=== PATIENT | male | born 2000 | race Caucasian/White ===

== ENCOUNTER 2024-11-27 10:19 | Inpatient (IN) ==
[2024-11-27 11:30] LABS: Acetaminophen < 3 ug/ml (10-30); Salicylate < 3.0 mg/dl (3.0-30)
[2024-11-27 11:39] LABS: Albumin Globulin Ratio 1.4 (0.9-2); Bilirubin,Total 0.6 mg/dl (0.2-1.0); Globulin 3.6 gm/dl (2.5-4.0); Total Protein 8.6 gm/dl (6.0-8.3)
[2024-11-27 11:44] LABS: Thyroid Stimulating Hormone 3.596 uIu/ml (0.300-4.500)
[2024-11-27 11:53] LABS: Appearance Urine Clear (Clear); Bacteria Urine Automated None Seen (None Seen); Bilirubin Urine Negative (Negative); Blood Urine Negative (Negative); Cast Urine Automated 0-2 /lpf (0-2); Color Urine Yellow; Epithelial Cell Urine Auto 0-2 /hpf (0-2); Glucose Urine UA Negative (Negative); Ketones Urine Trace (Negative); Leukocyte Esterase Urine Negative (Negative); Nitrite Urine Negative (Negative); Protein Urine Trace (Negative); RBC Urine Automated 0-2 /hpf (0-2); Specific Gravity Urine 1.031 (1.000-1.030); Urobilinogen Urine Negative (Negative); WBC Urine Automated 0-5 /hpf (0-5); pH Urine 5.5 (4.5-7.5)
[2024-11-27 12:39] LABS: Amphetamines+Metham, Urine Neg (Neg); Barbiturates, Urine Neg (Neg); Benzodiazepine, Urine Neg (Neg); Cocaine, Urine Neg (Neg); Fentanyl, Urine Neg (Neg); MDMA (Ecstacy), Urine Neg (Neg); Marijuana, Urine Neg (Neg); Methadone, Urine Neg (Neg); Opiate, Urine Neg (Neg); Phencyclidine, Urine Neg (Neg)
[2024-11-27 12:46] LABS: Basophils # (auto) 0.05 K/uL (0.00-0.20); Basophils % (auto) 0.5 %; Eosinophils # (auto) 0.19 K/uL (0.00-0.50); Eosinophils % (auto) 1.9 %; Hematocrit (blood only) 48.5 % (42.0-52.0); Immature Granulocytes # (auto) 0.05 K/uL (0.01-0.20); Immature Granulocytes % (auto) 0.5 %; Lymphocytes # (auto) 2.41 K/uL (1.20-3.40); Lymphocytes % (auto) 23.5 %; Mean Corpuscular Hemoglobin 30.9 pg (25.0-34.0); Mean Corpuscular Hgb Conc 35.1 g/dL (32.0-36.0); Monocytes # (auto) 0.85 K/uL (0.11-0.59); Monocytes % (auto) 8.3 %; Neutrophils # (auto) 6.69 K/uL (1.40-6.50); Neutrophils % (auto) 65.3 %; Platelet Count 288 K/uL (130-400); RDW Coefficient of Variation 13.2 % (11.5-14.5); RDW Standard Deviation 42.5 fL (36.4-46.3); Red Blood Count 5.51 M/uL (4.70-6.10); White Blood Count 10.24 K/ul (4.8-10.8)
[2024-11-27 13:10] LABS: BUN Creatinine Ratio 17.4 (10-20); Calcium 10.2 mg/dl (8.6-10.3); Creatinine Clr Calc Pharmacy 175.7 ml/min; Potassium 4.3 mmol/L (3.5-5.1)
--- NOTE | 2024-11-27 13:50 | Emergency Department Note ---
Impression & Plan Depression, Suicidal ideation ED Provider Note HISTORY OF PRESENT ILLNESS: Patient is a 24-year-old male presenting with depression and suicidal ideation. Patient reports over the last few months, most notably in the last 4 weeks, he has been having significant depressive symptoms. He reports that he has changes in his sleep schedule where he will only sleep for 4 hours a night or up to 14. He states that he has lack of pedro in doing the things that he needs to do anymore. He denies any particular trigger for these symptoms. He states that in the last few weeks, he has had passive thoughts of wanting to end his life. However, he states that "I would never do that because that would be selfish of me." He has no mental health diagnoses. He has never been admitted inpatient for psychiatry before. He does not take any medications. He denies any plan to end his life, but states that he has had passive thoughts of wanting it to be over. He states that he recently went on a vacation with his family and he did not feel like doing any of the fun activities that him and his family had planned. He reports his appetite is good. ROS: as above PHYSICAL EXAM: Constitutional: Patient appears in no acute distress. HENT: Head: Normocephalic and atraumatic. Eyes: EOMI, PERRL Mouth/Throat: Mucous membranes moist. Neck: Trachea midline. Neck supple. Musculoskeletal: No edema, tenderness or deformity noted. Skin: Warm and dry. No rash, erythema, pallor or cyanosis Psychiatric: Appropriate mood and affect for situation. Neurological: Alert and keenly responsive. CN II-XII grossly intact, moving all extremities equally and fully. MDM: - Vitals signs showed hypertension and tachycardia - History obtained via patient. History as above. - Chronic conditions affecting care: None - Differential diagnoses include, but are not limited to: Depression; UTI; alcohol intoxication; drug intoxication - External medical records reviewed. - Laboratory workup interpreted by myself showed normal WBC; stable electrolytes; normal TSH; negative ethanol/salicylate/acetaminophen levels - COVID negative - UA negative for infection - UDS negative - Patient was seen in conjunction with behavioral health case repairer. Patient medically cleared at this time. I do feel that the patient would benefit from inpatient psychiatric admission. A referral was sent to [facility] inpatient psychiatric unit, [address] [place] [address]. Liaison from the unit came down to evaluate the patient and he was excepted as a 201 in 3 [facility] inpatient unit. ASSESSMENT AND PLAN: Diagnosis: Depression; suicidal ideation Plan: Admit to [address] [place] [address] Past Med/Surg History Problem List (Updated 11/27/24 @ 15:52 by Andreina Laureano MD) Suicidal ideation (Acute) Depression (Acute) Social History Smoking Status: Never smoker Preferred Language: Samoan Feels Safe at Home: Yes Gender Identity: Male Results & Data (ED) Vital Signs Vital Signs - 24 hr 11/27/24 10:26 11/27/24 12:20 11/27/24 14:02 Temperature 36.8 C Temperature Source Temporal Artery Scan Pulse Rate 103 H Pulse Rate [Finger] 98 H 86 Respiratory Rate 20 18 20 Respiratory Effort / Characteristics Non-Labored Spontaneous Non-Labored Spontaneous Non-Labored Spontaneous Respiratory Depth Normal Normal Normal Respiratory Pattern Regular Regular Blood Pressure 160/99 H Blood Pressure [Left Arm] 152/88 H 143/93 H Blood Pressure Mean 119 Blood Pressure Mean [Left Arm] 109 109 Pulse Oximetry 97 98 97 Oxygen Delivery Method Room Air Room Air Room Air Sepsis Recent Fever Within 48 Hours No Sepsis New/Unexplained Change in Mental Status No Sepsis Action Taken by Nursing No Action Required Laboratory Data 11/27/24 12:30 11/27/24 10:43 Lab Results 11/27/24 11/27/24 11/27/24 Range/Units 10:36 10:38 10:43 WBC Cancelled RBC Cancelled Hgb Cancelled Hct Cancelled MCV Cancelled MCH Cancelled MCHC Cancelled RDW Std Deviation Cancelled RDW Coeff of Roge Cancelled Plt Count Cancelled MPV Cancelled Immature Gran % (Auto) Cancelled Neut % (Auto) Cancelled Lymph % (Auto) Cancelled Traill % (Auto) Cancelled Eos % (Auto) Cancelled Baso % (Auto) Cancelled Neut # (Auto) Cancelled Lymph # (Auto) Cancelled Traill # (Auto) Cancelled Eos # (Auto) Cancelled Baso # (Auto) Cancelled Immature Gran # (Auto) Cancelled Absolute Nucleated RBC Cancelled Nucleated RBC % (auto) Cancelled Neutrophils % (Manual) Cancelled Band Neutrophils % Cancelled Lymphocytes % (Manual) Cancelled Prolymphocyte % Cancelled Reactive Lymphs % (Man) Cancelled Monocytes % (Manual) Cancelled Eosinophils % (Manual) Cancelled Basophils % (Manual) Cancelled Metamyelocytes % (Man) Cancelled Myelocytes % (Man) Cancelled Promyelocytes % (Man) Cancelled Blast Cells % (Manual) Cancelled Plasma Cell % (Manual) Cancelled Other Cells % Cancelled Nucleated RBC % Cancelled Neutrophils # (Manual) Cancelled Band Neutrophils # Cancelled Total Absolute Neuts Cancelled Lymphocytes # (Manual) Cancelled Prolymphocyte # Cancelled Reactive Lymphs # Cancelled Total Abs Lymphocytes Cancelled Monocytes # (Manual) Cancelled Eosinophils # (Manual) Cancelled Basophils # (Manual) Cancelled Metamyelocytes # (Man) Cancelled Myelocytes # (Manual) Cancelled Promyelocytes # (Man) Cancelled Blast Cells # (Man) Cancelled Plasma Cell # (Manual) Cancelled Other Cells # Cancelled Nucleated RBCs # (Man) Cancelled Hypersegmented Neuts Cancelled Hyposegmented Neuts Cancelled Hypogranular Neuts Cancelled Large Granular Lymphs Cancelled # Lrg Granular Lymphs Cancelled Hairy Cells Cancelled Smudge Cells Cancelled Toxic Granulation Cancelled Toxic Vacuolation Cancelled Dohle Bodies Cancelled Rin Rods Cancelled Platelet Estimate Cancelled Hypogranular Platelets Cancelled Giant Platelets Cancelled Platelet Satelliting Cancelled RBC Morphology Cancelled Polychromasia Cancelled Hypochromasia Cancelled Poikilocytosis Cancelled Basophilic Stippling Cancelled Anisocytosis Cancelled Microcytosis Cancelled Macrocytosis Cancelled Spherocytes Cancelled Pappenheimer Bodies Cancelled Sickle Cells Cancelled Target Cells Cancelled Tear Drop Cells Cancelled Ovalocytes Cancelled Stomatocytes Cancelled Martinez-Silt Bodies Cancelled Echinocytes Cancelled Acanthocytes (Spur) Cancelled Rouleaux Cancelled RBC Agglutinates Cancelled Schistocytes Cancelled Sezary Cell Cancelled Sodium 139 (136-145) mmol/L Potassium 4.3 (3.5-5.1) mmol/L Chloride 107 (98-107) mmol/L Carbon Dioxide 22 (21-32) mmol/L Anion Gap 10 (3-11) BUN 15 (6-23) mg/dl Creatinine 0.86 (0.6-1.4) mg/dl Est Cr Clr Drug Dosing 175.7 ml/min eGFR 125.55 BUN/Creatinine Ratio 17.4 (10-20) Glucose 114 H (70-99(Fasting)) mg/dl Calcium 10.2 (8.6-10.3) mg/dl Total Bilirubin 0.6 (0.2-1.0) mg/dl AST 33 (13-39) U/L ALT 73 H (7-52) U/L Alkaline Phosphatase 61 (34-104) U/L Total Protein 8.6 H (6.0-8.3) gm/dl Albumin 5.0 (3.4-5.0) gm/dl Globulin 3.6 (2.5-4.0) gm/dl Albumin/Globulin Ratio 1.4 (0.9-2) TSH 3.596 (0.300-4.500) uIu/ml Urine Color Yellow Urine Appearance Clear (Clear) Urine pH 5.5 (4.5-7.5) Ur Specific Milnor 1.031 H (1.000-1.030) Urine Protein Trace H (Negative) Urine Glucose (UA) Negative (Negative) Urine Ketones Trace H (Negative) Urine Blood Negative (Negative) Urine Nitrite Negative (Negative) Urine Bilirubin Negative (Negative) Urine Urobilinogen Negative (Negative) Ur Leukocyte Esterase Negative (Negative) Urine WBC (Auto) 0-5 (0-5) /hpf Urine RBC (Auto) 0-2 (0-2) /hpf U Hyaline Cast (Auto) 0-2 (0-2) /lpf U Epithel Cells (Auto) 0-2 (0-2) /hpf Urine Bacteria (Auto) None Seen (None Seen) Urine Comment Salicylates < 3.0 L (3.0-30) mg/dl Urine Opiates Screen Neg (Neg) Ur Methadone, Qual Neg (Neg) Urine Fentanyl Screen Neg (Neg) Acetaminophen < 3 L (10-30) ug/ml Urine Barbiturates Neg (Neg) Ur Phencyclidine (PCP) Neg (Neg) U Amphetamin/Meth Scrn Neg (Neg) MDMA (Ecstasy) Screen Neg (Neg) U Benzodiazepines Scrn Neg (Neg) Ur Cocaine Metabolite Neg (Neg) U Marijuana (THC) Screen Neg (Neg) Ethyl Alcohol mg/dL < 10.0 (<10.0) mg/dl SARS-CoV-2, RNA, NAAT NEGATIVE (NEGATIVE) Blood Parasites ID Cancelled 11/27/24 Range/Units 12:30 WBC 10.24 RBC 5.51 Hgb 17.0 Hct 48.5 MCV 88.0 MCH 30.9 MCHC 35.1 RDW Std Deviation 42.5 RDW Coeff of Roge 13.2 Plt Count 288 MPV 12.0 Immature Gran % (Auto) 0.5 Neut % (Auto) 65.3 Lymph % (Auto) 23.5 Traill % (Auto) 8.3 Eos % (Auto) 1.9 Baso % (Auto) 0.5 Neut # (Auto) 6.69 H Lymph # (Auto) 2.41 Traill # (Auto) 0.85 H Eos # (Auto) 0.19 Baso # (Auto) 0.05 Immature Gran # (Auto) 0.05 Absolute Nucleated RBC Nucleated RBC % (auto) Neutrophils % (Manual) Band Neutrophils % Lymphocytes % (Manual) Prolymphocyte % Reactive Lymphs % (Man) Monocytes % (Manual) Eosinophils % (Manual) Basophils % (Manual) Metamyelocytes % (Man) Myelocytes % (Man) Promyelocytes % (Man) Blast Cells % (Manual) Plasma Cell % (Manual) Other Cells % Nucleated RBC % Neutrophils # (Manual) Band Neutrophils # Total Absolute Neuts Lymphocytes # (Manual) Prolymphocyte # Reactive Lymphs # Total Abs Lymphocytes Monocytes # (Manual) Eosinophils # (Manual) Basophils # (Manual) Metamyelocytes # (Man) Myelocytes # (Manual) Promyelocytes # (Man) Blast Cells # (Man) Plasma Cell # (Manual) Other Cells # Nucleated RBCs # (Man) Hypersegmented Neuts Hyposegmented Neuts Hypogranular Neuts Large Granular Lymphs # Lrg Granular Lymphs Hairy Cells Smudge Cells Toxic Granulation Toxic Vacuolation Dohle Bodies Rin Rods Platelet Estimate Hypogranular Platelets Giant Platelets Platelet Satelliting RBC Morphology Polychromasia Hypochromasia Poikilocytosis Basophilic Stippling Anisocytosis Microcytosis Macrocytosis Spherocytes Pappenheimer Bodies Sickle Cells Target Cells Tear Drop Cells Ovalocytes Stomatocytes Martinez-Silt Bodies Echinocytes Acanthocytes (Spur) Rouleaux RBC Agglutinates Schistocytes Sezary Cell Sodium (136-145) mmol/L Potassium (3.5-5.1) mmol/L Chloride (98-107) mmol/L Carbon Dioxide (21-32) mmol/L Anion Gap (3-11) BUN (6-23) mg/dl Creatinine (0.6-1.4) mg/dl Est Cr Clr Drug Dosing ml/min eGFR BUN/Creatinine Ratio (10-20) Glucose (70-99(Fasting)) mg/dl Calcium (8.6-10.3) mg/dl Total Bilirubin (0.2-1.0) mg/dl AST (13-39) U/L ALT (7-52) U/L Alkaline Phosphatase (34-104) U/L Total Protein (6.0-8.3) gm/dl Albumin (3.4-5.0) gm/dl Globulin (2.5-4.0) gm/dl Albumin/Globulin Ratio (0.9-2) TSH (0.300-4.500) uIu/ml Urine Color Urine Appearance (Clear) Urine pH (4.5-7.5) Ur Specific Milnor (1.000-1.030) Urine Protein (Negative) Urine Glucose (UA) (Negative) Urine Ketones (Negative) Urine Blood (Negative) Urine Nitrite (Negative) Urine Bilirubin (Negative) Urine Urobilinogen (Negative) Ur Leukocyte Esterase (Negative) Urine WBC (Auto) (0-5) /hpf Urine RBC (Auto) (0-2) /hpf U Hyaline Cast (Auto) (0-2) /lpf U Epithel Cells (Auto) (0-2) /hpf Urine Bacteria (Auto) (None Seen) Urine Comment Salicylates (3.0-30) mg/dl Urine Opiates Screen (Neg) Ur Methadone, Qual (Neg) Urine Fentanyl Screen (Neg) Acetaminophen (10-30) ug/ml Urine Barbiturates (Neg) Ur Phencyclidine (PCP) (Neg) U Amphetamin/Meth Scrn (Neg) MDMA (Ecstasy) Screen (Neg) U Benzodiazepines Scrn (Neg) Ur Cocaine Metabolite (Neg) U Marijuana (THC) Screen (Neg) Ethyl Alcohol mg/dL (<10.0) mg/dl SARS-CoV-2, RNA, NAAT (NEGATIVE) Blood Parasites ID Discharge Plan Visit Data Chief Complaint: Mental Health Evaluation Stated Complaint: MENTAL HEALTH ED Provider: Andreina Laureano Discharge Problem: Depression, Suicidal ideation Patient Disposition: Admitted As Inpatient Condition: Fair Discharge Instructions Interventions: ED Discharge Assessment Last Done: 11/27/24 15:48 Forms Stand Alone Forms: [facility], Suicide Prevention Resources Referrals Referrals: PCP,NO [Primary Care Provider] -
[2024-11-27] MEDS ORDERED: MAGNESIUM HYDROXIDE SUSP 30 ML UDC PO PRN (15:25)
[2024-11-27] MEDS ORDERED: SODIUM CHLORIDE 0.65% NA SOLN 45 ML (OCEAN) PRN (15:25)
[2024-11-27] MEDS ORDERED: ALUMINUM/MAGNESIUM SUSP 30 ML UDC PO PRN (15:25)
[2024-11-27] MEDS ORDERED: hydrOXYzine HCl 25 MG TAB PO PRN ×2 (15:25)
[2024-11-27] MEDS ORDERED: BISMUTH SUBSALICYLATE 262 MG CHEW PO PRN (15:25)
[2024-11-27] MEDS ORDERED: ACETAMINOPHEN 325 MG TAB PO PRN (15:25)
[2024-11-27] MEDS ORDERED: NON-FORMULARY PATIENT'S OWN MED PRN (16:18)
--- NOTE | 2024-11-28 13:27 | History & Physical ---
Date of Service November 28, 2024 Impression / Recommendations Impression VANESSA SNOWDEN is a 24-year-old M who currently lives in with roommate, has no PPH, and was admitted on 11/27/24 15:25 on a 201 voluntary commitment for suicidal ideation. Patient presents with recurrent major depressive episodes and anxious ruminations with strong family history causing academic and social dysfunction and poor self care. No past psychiatric history. Recent passive suicidal ideation with no active plans, denies past suicide attempts, intact reality testing wanting to live for family members, and future oriented with multiple goals. Labs reviewed and CBC, CMP, TSH, UA, UDS, BAL unremarkable. Plan to initiate serotonin antidepressant, med s/e and adverse effects discussed with pt and agreeable. Recommended pt to engage in cognitive behavioral therapy. Overall, I spent a total of 80 minutes with this case including review of chart records, nursing report, review of lab work, direct evaluation of the patient at bedside, counseling the patient, multidisciplinary team meeting, orders, and documentation in the electronic health record. 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 The patient will participate in group, recreational, and milieu therapies and will be offered additional individual and family sessions as clinically appropriate. -Start Sertraline 50mg daily -Start Hydroxyzine 50mg HS -Labs: A1c, fasting lipid (given BMI), Vit D, Vit B12 -Questionnaires: KALEB-7, PHQ9 Inventory Assets Strengths: social supports, intelligent Needs: outpatient connection, coping skills Suicide Risk Level Suicide Risk Level: Moderate (q15 min suicide checks) Risk Factors Assessment Male: Yes : Yes Do You Have Access To A Gun?: No Health Problems: No Mental Health Diagnoses: Yes Substance Use Disorders: No Previous Attempt: No Family History of Suicide: Yes Previous Psychiatric Hospitalization: No Hopelessness: No Protective Factors Assessment Christianity Beliefs: No : No Responsible for Young Children: No Employed: Yes ([employer]) Stable Relationships: Yes Supportive Family: Yes Good Rapport with Provider: Yes Absence of Any Risk Factors Above: No Psychiatric History Identifying Data VANESSA SNOWDEN is a 24-year-old M who currently lives in with roommate, has no PPH, and was admitted on 11/27/24 15:25 on a 201 voluntary commitment for suicidal ideation. Chief Complaint "Last 6 weeks not functioning well" History of Present Illness the patient reports not functioning the same over the past 6 weeks. He missed an academic deadline and he easily becomes stressed out. This happened last year as well. He worries about school and it spirals into other concerns. Has a fear of failure. Complains of less self-care, loss of appetite, decreased energy, decreased concentration, trouble staying asleep, poor sleep hygiene. Started 6 weeks ago. Reports multiple past episodes one last summer and the spring. Triggers for these episodes include missing academic deadlines. He complains of passive SI and reports he does this as a easy way out to escape from his problems. He says that he would never do it though because he wants to live for his family. No active plans or methods. Patient complains of depressed mood, inability to enjoy activities, sleep pattern disturbances, loss of interest, forgetfulness, increased fatigue, avoidance behaviors. Last felt suicidal 1 to 3 days ago. Denies access to firearms. Denies past suicide attempts. Denies current hopelessness. No past drug or alcohol treatment. Denies past alcohol or drug abuse. No tobacco. Drinks with 1-2 coffees a day. No past psychiatric history. Family psychiatric history significant for completed suicide in maternal grandfather, multiple family members on maternal side on antidepressants, suspected anxiety in father. Unknown medications and family members Childhood history: Grew up in [facility]. Parents at 12 years of age. Often feels judgment from father's side of the family. Denies neglect, physical/sexual abuse. Social history: Lives in an apartment for 1 year with a roommate. No housing concerns and can return home after discharge. Has access to transportation. has 1 younger sister. Father lives in [place] and mother in [place]. Currently single and sexually active with a heterosexual orientation. No past marriages or children. Has a bachelor's in aerospace engineering and currently pursuing a PhD in aerospace engineering At [employer]. No legal problems or arrests. Does not belong to a spiritual group. Past Psychiatric History Current Psychiatric Diagnosis: No hx formal MH diagnosis Do You Have Access To A Gun?: No History of Previous Suicide Attempt: No Allergies Allergy/AdvReac Type Severity Reaction Status Date / Time peanut Allergy Severe Anaphylaxis Unverified 11/27/24 16:17 shellfish derived Allergy Mild Unverified 11/27/24 16:17 Family History Family History of: Depression, Anxiety and Suicide Completion Family Mental Health History Comment: Dad depression/anxiety, maternal gran dfather completed suicide Alcohol History Hx of Alcohol Use Over the Past 12 Months: Yes (drinks very rarely) AUDIT Total Score: 1 Smoking Use Have You Smoked or Used Tobacco Products in the Last 30 Days: No Smoking Status: Never smoker Substance History Hx of Prescription Med Misuse Over the Past 12 Months: No Hx of Over the Counter Med Misuse Over the Past 12 Months: No Hx of Inhalent Misuse Over the Past 12 Months: No Hx of Organic Substance Use Over the Past 12 Months: No Hx of Illegal Substances/Street Drug Use Over Past 12 Months: No Problems as a Result of Past Substance Use: None Identified Personal History Living Arrangements: Apartment Highest Grade Completed: College Beliefs That Will Affect Care: None Patient History Social History Smoking Status: Never smoker Preferred Language: Tanzanian Communication Ability: Effective Cartridge Filler Required: No Beliefs That Will Affect Care: None Feels Safe at Home: Yes Gender Identity: Male Assistive Devices: Glasses Physical Exam Mental Examination: Appearance: Well Groomed Eye Contact: Direct Eye Contact Motor Behavior: Wringing Hands Speech: Normal Mood: Calm and Anxious Affect: Anxious and Constricted Thought Process: Intact and Linear Thought Content: Intact Hallucinations: None Insight: Fair Judgement: Fair Vital Signs (Past 24 Hours): Last Vital Signs Temp 36.8 C 11/28/24 05:52 Pulse 91 H 11/28/24 05:53 Resp 17 11/28/24 05:52 BP 125/84 11/28/24 05:53 Pulse Ox 99 11/28/24 05:52 O2 Del Method Room Air 11/28/24 05:52 Exam Statement: A physical exam was performed in the ED for the purposes of medical clearance. I accept that physical as correct and adequate for the purposes of the inpatient physical exam. Results & Data ([facility]) Current Inpatient Medications Current Inpatient Medications: Current Inpatient Medications Acetaminophen (Acetaminophen 325 Mg Tab) 650 mg PO Q4H PRN PRN Reason: Headache or Minor Fever Stop: 12/27/24 15:24 Al Hydrox/Mg Hydrox/Simethicone (Aluminum/Magnesium Susp 30 Ml Udc) 30 ml PO Q4H PRN PRN Reason: GI Upset Stop: 12/27/24 15:24 Bismuth Subsalicylate (Bismuth Subsalicylate 262 Mg Chew) 2 tab PO Q30M PRN PRN Reason: Loose Stool/Diarrhea Stop: 12/27/24 15:24 Hydroxyzine HCl (Hydroxyzine Hcl 25 Mg Tab) 50 mg PO HSZ PRN PRN Reason: Insomnia Stop: 12/27/24 15:24 Hydroxyzine HCl (Hydroxyzine Hcl 25 Mg Tab) 25 mg PO Q4H PRN PRN Reason: Anxiety Stop: 12/27/24 15:24 Hydroxyzine HCl (Hydroxyzine Hcl 25 Mg Tab) 50 mg PO HS LATASHA Stop: 12/28/24 21:59 Magnesium Hydroxide (Magnesium Hydroxide Susp 30 Ml Udc) 30 ml PO DAILY PRN PRN Reason: Constipation Stop: 12/27/24 15:24 Sertraline HCl (Sertraline Hcl 50 Mg Tablet) 50 mg PO QAM LATASHA Stop: 12/28/24 12:29 Sodium Chloride (Sodium Chloride 0.65% Na Soln 45 Ml ([place])) 1 - 2 sprays NA PRN PRN PRN Reason: Nasal Dryness/Congestion Stop: 12/27/24 15:24
[2024-11-28] MEDS ORDERED: EPINEPHrine INJ 1 MG/ML AMP IM PRN (13:43)
[2024-11-28] MEDS: SERTRALINE HCL 50 MG TABLET PO SCH (14:18)
[2024-11-28] MEDS: hydrOXYzine HCl 25 MG TAB PO SCH (21:19)
[2024-11-29 08:13] LABS: Estimated Average Glucose 105 mg/dl; Hemoglobin A1C 5.3 % (4.5-5.6)
--- NOTE | 2024-11-29 09:24 | Psychiatric Progress Note ---
Date of Service November 29, 2024 Impression / Recommendations Impression VANESSA SNOWDEN is a 24-year-old M who currently lives in with roommate, has no PPH, and was admitted on 11/27/24 15:25 on a 201 voluntary commitment for suicidal ideation. Diagnostically consistent with major depressive disorder and generalized anxiety disorder in context of recent academic stress and worsening symptoms. A: Eating well, sleep improving with Vistaril addition. Tolerating sertraline so far, possible side effect of headache but he feels this is manageable. Labwork reviewed and notable for elevated TGs and low Vit D. Discussed individual therapy vs IOP, he'll consider these options. Overall, I spent a total of 40 minutes on this case including meeting with the patient, reviewing the chart, nursing report, multidisciplinary team meeting, orders, and documentation. 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 The p atient will participate in group, recreational, and milieu therapies and will be offered additional individual and family sessions as clinically appropriate. -Start Sertraline 50mg daily -Start Hydroxyzine 50mg HS -Labs: A1c, fasting lipid (given BMI), Vit D, Vit B12 -Questionnaires: KALEB-7, PHQ9 Inventory Assets Strengths: social supports, intelligent Needs: outpatient connection, coping skills Suicide Risk Level Suicide Risk Level: Moderate (q15 min suicide checks) (depression with SI but feels safe in the hospital and feels able to ask for support if needed) Risk Factors Assessment Male: Yes : Yes Do You Have Access To A Gun?: No Health Problems: No Mental Health Diagnoses: Yes Substance Use Disorders: No Previous Attempt: No Family History of Suicide: Yes Previous Psychiatric Hospitalization: No Hopelessness: No Protective Factors Assessment Denominational Beliefs: No : No Responsible for Young Children: No Employed: Yes ([employer]) Stable Relationships: Yes Supportive Family: Yes Good Rapport with Provider: Yes Absence of Any Risk Factors Above: No Interval History Identifying Information VANESSA SNOWDEN is a 24-year-old M who currently lives in with roommate, has no PPH, and was admitted on 11/27/24 15:25 on a 201 voluntary commitment for suicidal ideation. Chief Complaint "Less bad". Review of Systems Sleep Information Total Hours of Sleep: 7.5 Meal Information Percent Meal Consumed - Breakfast: 100 Percent Meal Consumed - Lunch: 100 Percent Meal Consumed - Dinner: 95 Subjective Subjective Patient was seen & assessed and interval progress reviewed with nursing. Attending groups, eating his meals. Today reports some improvement in sleep last night. Having a headache today. Denies any other medication side effects. Disc ussed recent stressors related to missing a submission deadline for a conference and cycle of avoidance which further intensified his anxiety and lead to increased depression. Reviewed PHQ-9 score of 13 and KALEB-7 of 7. Physical Exam Psychiatric Orientation: alert and oriented x 3 Apperance: appropriately dressed and appropriately groomed Eye Contact: good eye contact Motor Behavior: no abnormal motor movements Speech: normal rate/rhythm/volume of speech Affect: + depressed affect and + anxious affect Mood: + depressed mood and + anxious mood Thought Process: goal directed thought process Thought Content: reality based without delusions Suicidal Thoughts: denies suicidal plan and denies suicidal intent; + reports suicidal thoughts (intermittent ) Homicidal Thoughts: denies homicidal thoughts Hallucinations: no auditory hallucinations and no visual hallucinations Cognition: recent memory grossly intact, remote memory grossly intact, attention grossly intact and language grossly intact Estimated Intelligence: consistent with education level Insight: + fair insight Judgment: + fair judgement Vital Signs (Past 24 Hours) Last Vital Signs Temp 36.4 C 11/29/24 06:25 Pulse 94 H 11/29/24 06:25 Resp 16 11/29/24 06:25 BP 113/80 11/29/24 06:25 Pulse Ox 97 11/29/24 06:25 O2 Del Method Room Air 11/29/24 06:25 Results & Data ([facility]) Laboratory Results Laboratory Results - last 24 hr 11/29/24 07:07 Estimat Average Glucose 105 Hemoglobin A1c 5.3 Triglycerides 209 H Cholesterol 161 LDL Cholesterol, Calc 79 VLDL Cholesterol, Calc 42 H HDL Cholesterol 40 Cholesterol/HDL Ratio 4.0 Vitamin B12 674 25-OH Vitamin D Total 14.8 L Current Inpatient Medications Current Inpatient Medications: Current Inpatient Medications Acetaminophen (Acetaminophen 325 Mg Tab) 650 mg PO Q4H PRN PRN Reason: Headache or Minor Fever Stop: 12/27/24 15:24 Al Hydrox/Mg Hydrox/Simethicone (Aluminum/Magnesium Susp 30 Ml Udc) 30 ml PO Q4H PRN PRN Reason: GI Upset Stop: 12/27/24 15:24 Bismuth Subsalicylate (Bismuth Subsalicylate 262 Mg Chew) 2 tab PO Q30M PRN PRN Reason: Loose Stool/Diarrhea Stop: 12/27/24 15:24 Epinephrine HCl (Epinephrine Inj 1 Mg/Ml Amp) 0.3 mg IM PRN PRN PRN Reason: Anaphylaxis Stop: 12/28/24 13:42 Hydroxyzine HCl (Hydroxyzine Hcl 25 Mg Tab) 50 mg PO HSZ PRN PRN Reason: Insomnia Stop: 12/27/24 15:24 Hydroxyzine HCl (Hydroxyzine Hcl 25 Mg Tab) 25 mg PO Q4H PRN PRN Reason: Anxiety Stop: 12/27/24 15:24 Hydroxyzine HCl (Hydroxyzine Hcl 25 Mg Tab) 50 mg PO HS LATASHA Stop: 12/28/24 21:59 Last Admin: 11/28/24 21:19 Dose: 50 mg Magnesium Hydroxide (Magnesium Hydroxide Susp 30 Ml Udc) 30 ml PO DAILY PRN PRN Reason: Constipation Stop: 12/27/24 15:24 Sertraline HCl (Sertraline Hcl 50 Mg Tablet) 50 mg PO QAM LATASHA Stop: 12/28/24 12:29 Last Admin: 11/29/24 08:15 Dose: 50 mg Sodium Chloride (Sodium Chloride 0.65% Na Soln 45 Ml ([employer])) 1 - 2 sprays NA PRN PRN PRN Reason: Nasal Dryness/Congestion Stop: 12/27/24 15:24 Mental Health & Subst Abuse Tx Therapist Name of Therapist: N/A [facility]n [facility]ation Name of Rn Observation: [facility] Phone Number for Rn Observation: [phone]
[2024-11-30] MEDS: CHOLECALCIFEROL 25 MCG (1000 UNITS) TAB PO SCH (08:16)
--- NOTE | 2024-11-30 09:55 | Psychiatric Progress Note ---
Date of Service November 30, 2024 Impression / Recommendations Impression VANESSA SNOWDEN is a 24-year-old M who currently lives in with roommate, has no PPH, and was admitted on 11/27/24 15:25 on a 201 voluntary commitment for suicidal ideation. Diagnostically consistent with major depressive disorder and generalized anxiety disorder in context of recent academic stress and worsening symptoms. A: Mood improving, still needs support meeting and to work on his safety plan. SW to help identify possible therapy vs CM referrals tomorrow and PCP for aftercare. Overall, I spent a total of 35 minutes on this case including meeting with the patient, reviewing the chart, nursing report, orders, and documentation. 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 The patient will participate in group, recreational, and milieu therapies and will be offered additional individual and family sessions as clinically appropriate. -Start Sertraline 50mg daily -Start Hydroxyzine 50mg HS -Labs: A1c, fasting lipid (given BMI), Vit D, Vit B12 -Questionnaires: KALEB-7, PHQ9 Inventory Assets Strengths: social supports, intelligent Needs: outpatient connection, coping skills Suicide Risk Level Suicide Risk Level: Moderate (q15 min suicide checks) (depression with SI prior to admission but mood improving, and feels safe in the hospital and feels able to ask for support if needed) Risk Factors Assessment Male: Yes : Yes Do You Have Access To A Gun?: No Health Problems: No Mental Health Diagnoses: Yes Substance Use Disorders: No Previous Attempt: No Family History of Suicide: Yes Previous Psychiatric Hospitalization: No Hopelessness: No Protective Factors Assessment Mormon Beliefs: No : No Responsible for Young Children: No 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 Chief Complaint "Pretty good". Review of Systems Sleep Information Total Hours of Sleep: 8 Sleep Comments: Routine HS Vistaril Meal Information Percent Meal Consumed - Breakfast: 100 Percent Meal Consumed - Lunch: 100 Percent Meal Consumed - Dinner: 100 Subjective Subjective Patient was seen & assessed and interval progress reviewed with nursing. Attending groups, reporting some mood improvement. Has a headache again today but denies any other medication side effects. Sleeping well. He's willing for case management referral if therapy referrals are not possible due to lack of insurance. Physical Exam Psychiatric Orientation: alert and oriented x 3 Apperance: appropriately dressed and appropriately groomed Eye Contact: good eye contact Motor Behavior: no abnormal motor movements Speech: normal rate/rhythm/volume of speech Affect: + anxious affect Mood: + anxious mood Thought Process: goal directed thought process Thought Content: reality based without delusions Suicidal Thoughts: denies suicidal thoughts, denies suicidal plan and denies suicidal intent Homicidal Thoughts: denies homicidal thoughts Hallucinations: no auditory hallucinations and no visual hallucinations Cognition: recent memory grossly intact, remote memory grossly intact, attention grossly intact and language grossly intact Estimated Intelligence: consistent with education level Insight: + fair insight Judgment: + fair judgement Vital Signs (Past 24 Hours) Last Vital Signs Temp 36.4 C 11/30/24 06:10 Pulse 100 H 11/30/24 06:11 Resp 16 11/30/24 06:10 BP 136/83 11/30/24 06:11 Pulse Ox 98 11/30/24 06:10 O2 Del Method Room Air 11/30/24 06:10 Results & Data ([facility]) Laboratory Results Laboratory Results - last 24 hr 11/30/24 08:12 POC Glucose 107 H Current Inpatient Medications Current Inpatient Medications: Current Inpatient Medications Acetaminophen (Acetaminophen 325 Mg Tab) 650 mg PO Q4H PRN PRN Reason: Headache or Minor Fever Stop: 12/27/24 15:24 Al Hydrox/Mg Hydrox/Simethicone (Aluminum/Magnesium Susp 30 Ml Udc) 30 ml PO Q4H PRN PRN Reason: GI Upset Stop: 12/27/24 15:24 Bismuth Subsalicylate (Bismuth Subsalicylate 262 Mg Chew) 2 tab PO Q30M PRN PRN Reason: Loose Stool/Diarrhea Stop: 12/27/24 15:24 Epinephrine HCl (Epinephrine Inj 1 Mg/Ml Amp) 0.3 mg IM PRN PRN PRN Reason: Anaphylaxis Stop: 12/28/24 13:42 Hydroxyzine HCl (Hydroxyzine Hcl 25 Mg Tab) 50 mg PO HSZ PRN PRN Reason: Insomnia Stop: 12/27/24 15:24 Hydroxyzine HCl (Hydroxyzine Hcl 25 Mg Tab) 25 mg PO Q4H PRN PRN Reason: Anxiety Stop: 12/27/24 15:24 Hydroxyzine HCl (Hydroxyzine Hcl 25 Mg Tab) 50 mg PO HS LATASHA Stop: 12/28/24 21:59 Last Admin: 11/29/24 21:14 Dose: 50 mg Magnesium Hydroxide (Magnesium Hydroxide Susp 30 Ml Udc) 30 ml PO DAILY PRN PRN Reason: Constipation Stop: 12/27/24 15:24 Sertraline HCl (Sertraline Hcl 50 Mg Tablet) 50 mg PO QAM LATASHA Stop: 12/28/24 12:29 Last Admin: 11/30/24 08:16 Dose: 50 mg Sodium Chloride (Sodium Chloride 0.65% Na Soln 45 Ml ([employer])) 1 - 2 sprays NA PRN PRN PRN Reason: Nasal Dryness/Congestion Stop: 12/27/24 15:24 Vitamin D (Cholecalciferol 25 Mcg (1000 Units) Tab) 25 mcg PO QAM LATASHA Stop: 12/30/24 08:59 Last Admin: 11/30/24 08:16 Dose: 25 mcg Mental Health & Subst Abuse Tx Therapist Name of Therapist: N/A [facility] Name of Blindstitch [facility]: [facility] Phone Number for [facility]ch [facility]: [phone]
--- NOTE | 2024-12-01 12:53 | Discharge Summary ---
Date of Service December 01, 2024 History of Present Illness the patient reports not functioning the same over the past 6 weeks. He missed an academic deadline and he easily becomes stressed out. This happened last year as well. He worries about school and it spirals into other concerns. Has a fear of failure. Complains of less self-care, loss of appetite, decreased energy, decreased concentration, trouble staying asleep, poor sleep hygiene. Started 6 weeks ago. Reports multiple past episodes one last summer and the spring. Triggers for these episodes include missing academic deadlines. He complains of passive SI and reports he does this as a easy way out to escape from his problems. He says that he would never do it though because he wants to live for his family. No active plans or methods. Patient complains of depressed mood, inability to enjoy activities, sleep pattern disturbances, loss of interest, forgetfulness, increased fatigue, avoidance behaviors. Last felt suicidal 1 to 3 days ago. Denies access to firearms. Denies past suicide attempts. Denies current hopelessness. No past drug or alcohol treatment. Denies past alcohol or drug abuse. No tobacco. Drinks with 1-2 coffees a day. No past psychiatric history. Family psychiatric history significant for completed suicide in maternal grandfather, multiple family members on maternal side on antidepressants, suspected anxiety in father. Unknown medications and family members Childhood history: Grew up in [facility]. Parents at 12 years of age. Often feels judgment from father's side of the family. Denies neglect, physical/sexual abuse. Social history: Lives in an apartment for 1 year with a roommate. No housing concerns and can return home after discharge. Has access to transportation. has 1 younger sister. Father lives in [place] and mother in [place]. Currently single and sexually active with a heterosexual orientation. No past marriages or children. Has a bachelor's in aerospace engineering and currently pursuing a PhD in aerospace engineering At [employer]. No legal problems or arrests. Does not belong to a spiritual group. Physical Exam Vital Signs (Past 24 Hours) Last Vital Signs Temp 36.7 C 12/01/24 06:23 Pulse 74 12/01/24 06:24 Resp 16 12/01/24 06:23 BP 133/78 12/01/24 06:24 Pulse Ox 98 11/30/24 06:10 O2 Del Method Room Air 11/30/24 06:10 Principal Diagnosis Major Depressive Disorder Psychiatric Data See daily stay summary. In short, patient was engaged with the social/therapeutic milieu of the unit, safety was maintained and the patient was cooperative with care. Medication changes included initiation of sertraline for depression and anxiety, Vistaril for insomnia and Vit D supplementation and they tolerated this well. A support session was held and safety plan was completed prior to discharge. They participated in safety planning and in discussions about ways to seek support and recognizing warning signs and utilizing coping skills. Reviewed ways to have their safety plan and contacts easily available should thoughts of SI re-emerge in the future. Reviewed importance of seeking emergency care should SI intensify, worsen or should they feel unsafe in the future which they agree to do. On the day of discharge they stated their mood was "good" and remained future-oriented including spending time with family, cleaning his apartment and engaging in aftercare appointments for therapy, primary care and [employer] student care and advocacy. Day of Discharge Assessment Today the patient voices readiness for discharge. They note improvement in mood and anxiety. They deny thoughts of harm to self or others. Thoughts are organized and they are clinically improved from admission. There is no evidence of psychosis. They improved in the hospital with support and medication adjustments. They agree to take medications as prescribed and keep follow-up appointments. At the time of the discharge they are deemed to be stable and appropriate for outpatient level of care. They are not deemed to be at imminent risk of harm to self or others. They are aware of emergency and crisis services. Knows to call 911 or go to nearest emergency care center if in a crisis which cannot be handled as an outpatient. Suicide risk assessment: Acute risk is low given improvement in mood and denial of SI, lack of access to lethal means, improvement in sleep and hopefulness. Chronic risk is low to moderate given some non-modifiable risk factors: psychiatric co-morbid diagnoses, family history of by suicide but also with protective factors including student, good social support, sense of responsibility to family and social supports, outpatient care in place, positive coping skills, positive problem solving, willingness to engage with treatment and good self-observation. Counseled on ways to reduce acute and chronic risk including engaging with outpatient providers, using safety plan if needed, utilizing supports, taking medication, and using coping skills. Modifiable risk factors of SI and depression were addressed during hospitalization through development of new coping skills, [support meeting], safety planning, and medication adjustments. Discharge physical exam: See admission H&P, MSE per above and day of discharge summary. Overall, I spent a total of 35 minutes on this case including meeting with the patient, reviewing the chart, nursing report, multidisciplinary team meeting, discharge orders, anticipatory planning, safety planning, risk assessment and documentation. Transition of Care Transition Of Care Record: was reviewed with the patient Advance Directives Advance Directives Information Provided: Yes Advance Directives: No Mental Health Advance Directive: No Advance Directives on File: No Living Will: No Power of Director Of Creative Services: No Advance Directives Reason:: Declines as Mental Health Visit. Suicide Risk Level Suicide Risk Level Comments: Acute risk is low given denial of SI and future-oriented, see further assessment above Risk Factors Assessment Male: Yes : Yes Do You Have Access To A Gun?: No Health Problems: No Mental Health Diagnoses: Yes Substance Use Disorders: No Previous Attempt: No Family History of Suicide: Yes Previous Psychiatric Hospitalization: No Hopelessness: No Protective Factors Assessment Protestant Beliefs: No : No Responsible for Young Children: No Employed: Yes ([employer]) Stable Relationships: Yes Supportive Family: Yes Good Rapport with Provider: Yes Absence of Any Risk Factors Above: No Discharge Data Lab Results 11/27/24 11/27/24 11/27/24 10:36 10:38 10:43 WBC Cancelled RBC Cancelled Hgb Cancelled Hct Cancelled MCV Cancelled MCH Cancelled MCHC Cancelled RDW Std Deviation Cancelled RDW Coeff of Roge Cancelled Plt Count Cancelled MPV Cancelled Immature Gran % (Auto) Cancelled Neut % (Auto) Cancelled Lymph % (Auto) Cancelled Wasatch % (Auto) Cancelled Eos % (Auto) Cancelled Baso % (Auto) Cancelled Neut # (Auto) Cancelled Lymph # (Auto) Cancelled Wasatch # (Auto) Cancelled Eos # (Auto) Cancelled Baso # (Auto) Cancelled Immature Gran # (Auto) Cancelled Absolute Nucleated RBC Cancelled Nucleated RBC % (auto) Cancelled Neutrophils % (Manual) Cancelled Band Neutrophils % Cancelled Lymphocytes % (Manual) Cancelled Prolymphocyte % Cancelled Reactive Lymphs % (Man) Cancelled Monocytes % (Manual) Cancelled Eosinophils % (Manual) Cancelled Basophils % (Manual) Cancelled Metamyelocytes % (Man) Cancelled Myelocytes % (Man) Cancelled Promyelocytes % (Man) Cancelled Blast Cells % (Manual) Cancelled Plasma Cell % (Manual) Cancelled Other Cells % Cancelled Nucleated RBC % Cancelled Neutrophils # (Manual) Cancelled Band Neutrophils # Cancelled Total Absolute Neuts Cancelled Lymphocytes # (Manual) Cancelled Prolymphocyte # Cancelled Reactive Lymphs # Cancelled Total Abs Lymphocytes Cancelled Monocytes # (Manual) Cancelled Eosinophils # (Manual) Cancelled Basophils # (Manual) Cancelled Metamyelocytes # (Man) Cancelled Myelocytes # (Manual) Cancelled Promyelocytes # (Man) Cancelled Blast Cells # (Man) Cancelled Plasma Cell # (Manual) Cancelled Other Cells # Cancelled Nucleated RBCs # (Man) Cancelled Hypersegmented Neuts Cancelled Hyposegmented Neuts Cancelled Hypogranular Neuts Cancelled Large Granular Lymphs Cancelled # Lrg Granular Lymphs Cancelled Hairy Cells Cancelled Smudge Cells Cancelled Toxic Granulation Cancelled Toxic Vacuolation Cancelled Dohle Bodies Cancelled Rin Rods Cancelled Platelet Estimate Cancelled Hypogranular Platelets Cancelled Giant Platelets Cancelled Platelet Satelliting Cancelled RBC Morphology Cancelled Polychromasia Cancelled Hypochromasia Cancelled Poikilocytosis Cancelled Basophilic Stippling Cancelled Anisocytosis Cancelled Microcytosis Cancelled Macrocytosis Cancelled Spherocytes Cancelled Pappenheimer Bodies Cancelled Sickle Cells Cancelled Target Cells Cancelled Tear Drop Cells Cancelled Ovalocytes Cancelled Stomatocytes Cancelled Martinez-Upham Bodies Cancelled Echinocytes Cancelled Acanthocytes (Spur) Cancelled Rouleaux Cancelled RBC Agglutinates Cancelled Schistocytes Cancelled Sezary Cell Cancelled Sodium 139 Potassium 4.3 Chloride 107 Carbon Dioxide 22 Anion Gap 10 BUN 15 Creatinine 0.86 Est Cr Clr Drug Dosing 175.7 eGFR 125.55 BUN/Creatinine Ratio 17.4 Glucose 114 H POC Glucose Estimat Average Glucose Hemoglobin A1c Calcium 10.2 Total Bilirubin 0.6 AST 33 ALT 73 H Alkaline Phosphatase 61 Total Protein 8.6 H Albumin 5.0 Globulin 3.6 Albumin/Globulin Ratio 1.4 Triglycerides Cholesterol LDL Cholesterol, Calc VLDL Cholesterol, Calc HDL Cholesterol Cholesterol/HDL Ratio Vitamin B12 25-OH Vitamin D Total TSH 3.596 Urine Color Yellow Urine Appearance Clear Urine pH 5.5 Ur Specific Charlotte 1.031 H Urine Protein Trace H Urine Glucose (UA) Negative Urine Ketones Trace H Urine Blood Negative Urine Nitrite Negative Urine Bilirubin Negative Urine Urobilinogen Negative Ur Leukocyte Esterase Negative Urine WBC (Auto) 0-5 Urine RBC (Auto) 0-2 U Hyaline Cast (Auto) 0-2 U Epithel Cells (Auto) 0-2 Urine Bacteria (Auto) None Seen Urine Comment Salicylates < 3.0 L Urine Opiates Screen Neg Ur Methadone, Qual Neg Urine Fentanyl Screen Neg Acetaminophen < 3 L Urine Barbiturates Neg Ur Phencyclidine (PCP) Neg U Amphetamin/Meth Scrn Neg MDMA (Ecstasy) Screen Neg U Benzodiazepines Scrn Neg Ur Cocaine Metabolite Neg U Marijuana (THC) Screen Neg Ethyl Alcohol mg/dL < 10.0 SARS-CoV-2, RNA, NAAT NEGATIVE Blood Parasites ID Cancelled 11/27/24 11/29/24 11/30/24 12:30 07:07 08:12 WBC 10.24 RBC 5.51 Hgb 17.0 Hct 48.5 MCV 88.0 MCH 30.9 MCHC 35.1 RDW Std Deviation 42.5 RDW Coeff of Roge 13.2 Plt Count 288 MPV 12.0 Immature Gran % (Auto) 0.5 Neut % (Auto) 65.3 Lymph % (Auto) 23.5 Wasatch % (Auto) 8.3 Eos % (Auto) 1.9 Baso % (Auto) 0.5 Neut # (Auto) 6.69 H Lymph # (Auto) 2.41 Wasatch # (Auto) 0.85 H Eos # (Auto) 0.19 Baso # (Auto) 0.05 Immature Gran # (Auto) 0.05 Absolute Nucleated RBC Nucleated RBC % (auto) Neutrophils % (Manual) Band Neutrophils % Lymphocytes % (Manual) Prolymphocyte % Reactive Lymphs % (Man) Monocytes % (Manual) Eosinophils % (Manual) Basophils % (Manual) Metamyelocytes % (Man) Myelocytes % (Man) Promyelocytes % (Man) Blast Cells % (Manual) Plasma Cell % (Manual) Other Cells % Nucleated RBC % Neutrophils # (Manual) Band Neutrophils # Total Absolute Neuts Lymphocytes # (Manual) Prolymphocyte # Reactive Lymphs # Total Abs Lymphocytes Monocytes # (Manual) Eosinophils # (Manual) Basophils # (Manual) Metamyelocytes # (Man) Myelocytes # (Manual) Promyelocytes # (Man) Blast Cells # (Man) Plasma Cell # (Manual) Other Cells # Nucleated RBCs # (Man) Hypersegmented Neuts Hyposegmented Neuts Hypogranular Neuts Large Granular Lymphs # Lrg Granular Lymphs Hairy Cells Smudge Cells Toxic Granulation Toxic Vacuolation Dohle Bodies Rin Rods Platelet Estimate Hypogranular Platelets Giant Platelets Platelet Satelliting RBC Morphology Polychromasia Hypochromasia Poikilocytosis Basophilic Stippling Anisocytosis Microcytosis Macrocytosis Spherocytes Pappenheimer Bodies Sickle Cells Target Cells Tear Drop Cells Ovalocytes Stomatocytes Martinez-Upham Bodies Echinocytes Acanthocytes (Spur) Rouleaux RBC Agglutinates Schistocytes Sezary Cell Sodium Potassium Chloride Carbon Dioxide Anion Gap BUN Creatinine Est Cr Clr Drug Dosing eGFR BUN/Creatinine Ratio Glucose POC Glucose 107 H Estimat Average Glucose 105 Hemoglobin A1c 5.3 Calcium Total Bilirubin AST ALT Alkaline Phosphatase Total Protein Albumin Globulin Albumin/Globulin Ratio Triglycerides 209 H Cholesterol 161 LDL Cholesterol, Calc 79 VLDL Cholesterol, Calc 42 H HDL Cholesterol 40 Cholesterol/HDL Ratio 4.0 Vitamin B12 674 25-OH Vitamin D Total 14.8 L TSH Urine Color Urine Appearance Urine pH Ur Specific Charlotte Urine Protein Urine Glucose (UA) Urine Ketones Urine Blood Urine Nitrite Urine Bilirubin Urine Urobilinogen Ur Leukocyte Esterase Urine WBC (Auto) Urine RBC (Auto) U Hyaline Cast (Auto) U Epithel Cells (Auto) Urine Bacteria (Auto) Urine Comment Salicylates Urine Opiates Screen Ur Methadone, Qual Urine Fentanyl Screen Acetaminophen Urine Barbiturates Ur Phencyclidine (PCP) U Amphetamin/Meth Scrn MDMA (Ecstasy) Screen U Benzodiazepines Scrn Ur Cocaine Metabolite U Marijuana (THC) Screen Ethyl Alcohol mg/dL SARS-CoV-2, RNA, NAAT Blood Parasites ID Hospital Course (1) Suicidal ideation: (2) Anxiety: (3) Insomnia: (4) MDD (major depressive disorder), recurrent episode, severe: (5) 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 The patient will participate in group, recreational, and milieu therapies and will be offered additional individual and family sessions as clinically appropriate. -Start Sertraline 50mg daily -Start Hydroxyzine 50mg HS -Labs: A1c, fasting lipid (given BMI), Vit D, Vit B12 -Questionnaires: KALEB-7, PHQ9 Mental Health & Subst Abuse Tx Therapist Name of Therapist: [facility] Therapist's Phone Number: [phone] Date of Therapist Appointment: 12/03/24 Time of Therapist Appointment: 8:00AM Therapy Appointment Comment: Bring ID - Therapist: Preston - Address: [address] [place] [id number] [address] Name of Hydrant Setter: [facility] Phone Number for Hydrant Setter: [phone] Case Management Appointment Comment: 12/01/24 Update - MH/ID indicated they are only providing funding for OP Post Discharge Appointments Other #1: Name of Aftercare Appointment: [facility] Phone Number of Aftercare Appointment: [phone] Date of Aftercare Appointment: 12/03/24 Time of Aftercare Appointment: 2:00PM Aftercare Appointment Comment: Virtual Contact Information Discharge Discharge Address: [facility] [place] [address] Discharge Plan Discharge Items Patient Disposition: Home - Self-Care Reason For Visit: UNSPECIFIED DEPRESSIVE DISORDER Discharge Diagnosis: Major Depressive Disorder Condition on Discharge: Fair Activity: Resume your previous activity Non-emergency contact: Primary Care Provider and Therapist Call non-emergency contact if: you have any medication questions and your symptoms worsen Follow-up/Referrals: PCP,NO [Primary Care Provider] - Diet: Regular Addtl Attending Provider Instructions: Optional mobile apps we discussed: -Virtual Hope Box -Suicide safety plan SPECIAL CARE INSTRUCTIONS: 1. Follow through with your scheduled aftercare appointments. If unable to keep an appointment, please call to reschedule. 2. Take your medication only as prescribed. Medication should not be changed or stopped without the approval of your doctor. In the event of worsening symptoms or concerns about side effects, contact your doctor immediately. 3. Utilize new healthy coping skills, anger management skills, and stress management skills learned during your hospitalization. Journal feelings and process them with a support person. Identify stressors or situations that may result in relapse, deterioration or inappropriate behaviors and develop a plan to deal with those issues. 4. If your coping skills are ineffective and you are in crisis, contact your outpatient providers for direction. If unable to reach your providers, please call the [facility] CRISIS LINE AT , go to the [facility] walk-in center at [address], [address], [place], or go to the closest Emergency Room. 5. Avoid alcohol and un-prescribed drugs. 6. You have been provided with the Mental Health Advance Directives Pamphlet for your review. 7. Your condition is stable for discharge to outpatient level of care, but recovery is an ongoing process. Ifthoughts to harm yourself or others return, follow the safety plan developed during your stay. Planning for a safe return home includes securing weapons. Our treatment team recommends weaponsbe removed from the home until your outpatient provider reassesses your progress. In rare cases where the items themselvescannot be removed, guns and ammunitionshould be secured separatelyand keys stored by a reliable personoutside of the home. If you were admitted on an involuntary commitment, the police or other legal authorities may be involved in this process. AFTERCARE APPOINTMENTS: * Please call your insurance company prior to your scheduled appointment to confirm your aftercare providers are covered. Take your insurance information to your appointments. WHO TO CALL AND WHEN: Medical Emergencies: For questions or emergencies related to your hospital stay, please contact the Inpatient Behavioral Health Unit at [phone]. A assistant manager bilingual is on-call 01/01 for the Behavioral Health Unit for emergencies At any time you feel your situation is an emergency, you may also call 911 immediately. National Crisis Hotline: 988 Pending Studies at Discharge: No Stand-Alone Forms: My [facility] Medications and DC Order Prescriptions: New sertraline 50 mg Tablet 50 mg PO QAM 30 Days Qty: 30 0RF cholecalciferol (vitamin D3) 25 mcg (1,000 unit) Capsule 25 mcg PO QAM Qty: 1 0RF hydroxyzine HCl 50 mg tablet 50 mg PO HS 30 Days Qty: 30 0RF Discharge Orders: Discharge Order (Routine); Ordered 12/01/24 Ordered By: Moni Boston Admission Data Admit Date/Time: 11/27/24 15:25 Attending Provider: Moni Boston Admit Provider: Aquilino Hernandez Primary Care Provider: PCP,NO Other Providers: Aquilino Hernandez Other Interventions: Discharge Summary Assessment (RN) Last Done: 12/01/24 14:57 PSY Interdisciplinary Discharge Planning Last Done: 12/01/24 14:57 Coding Level of Care Code 68444 D/C day mgmt > 30 min Diagnoses Suicidal ideation R45.851 Anxiety F41.9 Insomnia G47.00 MDD (major depressive disorder), recurrent episode, severe F33.2 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
== END 2024-12-01 15:24 | disposition home or self-care (01) | DRG 885 ==
LOC: ED 10:19 → SUATTDRO 15:25 → 3S 15:25